=== PATIENT | female | born 1955 | race Caucasian/White ===

== ENCOUNTER 2020-10-14 15:37 | Outpatient (REF) | payer MEDICAID, SELFPAY ==
[2020-10-14 21:44] LABS: Abs Immature Grans 0.01 10^3/uL (0.0-0.06); Absolute Basophil Count 0.07 10^3/uL (0.0-0.2); Absolute Eosinophil Count 0.04 10^3/uL (0.0-0.7); Absolute Lymphocyte Count 1.31 10^3/uL (1.2-3.4); Absolute Monocyte Count 0.69 10^3/uL (0.1-0.8); Absolute Neutrophil Count 4.62 10^3/uL (1.2-6.7); Eosinophils % 0.6; HCT 44.5 % (36.0-46.0); HGB 15.1 g/dL (11.2-15.7); Immature Grans % 0.1; Lymphocytes % 19.4; MCH 29.9 pg (27.0-33.0); MCHC 33.9 % (32.0-36.0); MCV 88.1 fL (80-95); MPV 10.3 fL (8.0-11.0); Monocytes % 10.2; Neutrophils % 68.7; Nucleated RBC 0 %; Platelet Count 237 10^3/uL (130-400); RBC 5.05 10^6/uL (3.93-5.22); RDW 12.4 % (11.7-14.6); RDW-SD 40.3 fL; WBC 6.74 10^3/uL (4.4-10.8)
[2020-10-14 21:47] LABS: Bilirubin Negative (Negative); Blood Trace-intact (Negative); Clarity Clear (Clear); Glucose Negative (Negative); Ketones Trace mg/dL (Negative); Leukocyte Esterase Negative (Negative); Nitrite Negative (Negative); Urobilinogen 0.2 EU/dL (Up TO 0.2)
[2020-10-14 22:04] LABS: ALT 26 U/L (14-59); AST 20 U/L (15-37); Albumin 4.3 g/dL (3.4-5.0); Alkaline Phosphatase 96 U/L (46-116); Anion Gap 8.6 mmol/L (3-11); BUN 16 mg/dL (7-18); Bilirubin, Total 0.9 mg/dL (0.2-1.0); C-Reactive Protein 0.05 mg/dL (0.0-0.3); CO2 30.4 mmol/L (21.0-32.0); COMMENT (LAB VIEW ONLY) 139.49 mg/dL; CREATININE 0.8 mg/dL (0.55-1.02); Calcium 10.6 mg/dL (8.5-10.1); Chloride 105 mmol/L (98-107); Glucose 90 mg/dL (74-106); Potassium 4.4 mmol/L (3.5-5.1); Sodium 144 mmol/L (136-145); Total Protein 7.6 g/dL (6.4-8.2)
[2020-10-14 22:14] LABS: Bacteria Rare HPF (Negative); C & S Indicated? No; Casts Negative LPF (Negative); Crystals Negative HPF (Negative); Epithelial Cells Few HPF (Negative); Mucus Negative (Negative); WBC Negative HPF (0-5)
[2020-10-16 14:59] LABS: ANA Interpretation Negative (Negative)
[2020-10-17 14:19] LABS: c-ANCA Negative (Negative); p-ANCA Negative (Negative)
== END 2020-10-14 15:38 | disposition home or self-care (01) ==
LOC: NCHCN 15:37
DX: I16.0 Hypertensive urgency (principal); G47.9 Sleep disorder, unspecified; M79.2 Neuralgia and neuritis, unspecified; Z86.79 Personal history of other diseases of the circulatory system; R31.21 Asymptomatic microscopic hematuria; I10 Essential (primary) hypertension
CPT/HCPCS: 80053; 81003; 81015; 82043; 82570; 84443; 85025; 86038; 86140; 86255

== ENCOUNTER 2020-10-21 20:58 | Outpatient (REF) | payer MEDICAID, SELFPAY ==
[2020-10-21 18:38] LABS: Calcium 9.7 mg/dL (8.5-10.1)
[2020-10-23 08:58] LABS: Parathyroid Hormone,Intact 37 pg/mL (19-88)
== END 2020-10-21 20:59 | disposition home or self-care (01) ==
LOC: NCHCN 20:58
DX: E83.52 Hypercalcemia (principal); I10 Essential (primary) hypertension
CPT/HCPCS: 82310; 83970

== ENCOUNTER 2021-09-05 08:43 | Emergency (ER) | payer MEDICAID, SELFPAY ==
--- NOTE | 2021-09-05 | DI.CT_ITS ---
Exam(s) 3D RECON ON CT WORKSTATION EXAM: 3D RECON ON CT WORKSTATION CLINICAL HISTORY: 3D RECONS REQUESTED ON FX HUMERUS. TECHNIQUE: Imaging Protocol: 3D reconstructions were performed. CONTRAST MATERIAL: Non contrast COMPARISON: CR,XR XR SHOULDER LT COMPLETE 2+V from 09/05/[address] UPPER EXTREMITY LT WO from 09/05/2021 FINDINGS: The comminuted fracture of the humeral head is again noted with involvement of the greater tuberosity . There is separation of fracture fragments. There is widening of the joint space related to effusi on seen on 2D images.. IMPRESSION: Comminuted humeral head fracture. RADIATION DOSE DELIVERED: Total DLP DATA REPOSITORY: All CT scans at this facility are submitted to the National Radiology Data Registry (NRDR) Dose Index Registry (DIR) with the [employer] (A[employer]). RADIATION OPTIMIZATION: All CT scans at this facility use at least one of these dose optimization te chniques: automated exposure control; mA and/or kV adjustment per patient size (includes targeted exa ms where dose is matched to clinical indication); or iterative reconstruction.
--- NOTE | 2021-09-05 08:51 | ED.GENADUL_ITS ---
Discharge Plan Disposition Patient Disposition: HOME Condition: Stable Discharge Details Clinical Impression: Fracture of proximal humerus Primary Care Provider: Cathy Diaz ED Provider: Kathleen Art Home Meds and New Rx's Prescriptions: Continued sertraline [Zoloft] 25 mg tablet 25 mg PO DAILY 0RF coenzyme Q10 [Co Q-10] 100 mg capsule 100 mg PO DAILY 0RF taurine 1,000 mg capsule 1,000 mg PO DAILY 0RF cyanocobalamin (vitamin B-12) [Vitamin B-12] 1,000 mcg Tablet 1,000 mcg PO DAILY 0RF magnesium 100 mg Capsule 100 mg PO DAILY 0RF magnesium 100 mg Capsule 200 mg PO HS 0RF omega-3 fatty acids-vitamin E 1,000 mg Capsule 1 cap PO DAILY 0RF Discharge Instructions Additional Instructions: Rest, ice, and elevate the affected area as much as possible. Alternate tylenol and motrin as needed and directed for pain. Take the oxycodone for pain not relieved with Tylenol or Motrin. Keep the sling in place at all times until follow-up with orthopedics. You may remove it briefly to shower but be sure to keep your arm at your side You will get a call from the orthopedist office on Monday to schedule a follow- up appointment for reevaluation. Return immediately to the emergency department if you develop any worsening or new concerning symptoms. Referrals: Martin Aggarwal MD [ [facility]] - Discharge Data Discharge Date/Time-TO BE ENTERED AT DEPARTURE: 09/05/21 11:15 Discharge Physician: Kathleen Art Medical Decision Making 66-year-old female with a history of anxiety presents with left shoulder pain after a trip and fall landing on her left shoulder at home 1 hour ago. Denies any other injuries. She has tenderness and edema to the left proximal upper arm, holding her arm close to her body. Suspect proximal humerus fracture. No obvious deformity. Neurovascularly intact. Will place in a sling, give a dose of ibuprofen and refer for x-ray. X-ray notes: FINDINGS: Bones/joints: There is a comminuted fracture of the proximal left humerus involving the surgical neck and greater tuberosity with multiple mild to moderately displaced fracture fragments. This fracture has a dominant oblique component in the surgical neck. There is pseudosubluxation of the humeral head with respect to the glenoid, likely due to an underlying glenohumeral joint effusion, though no dislocation. Acromioclavicular alignment is anatomic. Soft tissues: Periarticular soft tissues are unremarkable. X-ray reviewed with Dr. Aggarwal who requested a CT with KOR protocol and 3D reconstruction and will need surgical repair. Recommends a sling and orthopedics will follow up with her tomorrow. Will give oxycodone to go as needed for breakthrough pain. Advised on the importance of rest, ice, elevation, alternating Tylenol and Motrin. Patient placed on orthopedic follow-up list. Usual and customary return precautions given prior to discharge. Medical Records Medical records reviewed: Yes I reviewed the patient's medical records. Imaging Data Radiologic Study: Radiologist's impression: XR Left Shoulder Exam date and time: 09/05/2021 9:23 AM Age: 66 years old Clinical indication: Injury or trauma; Fall; Fracture, traumatic injury; Closed fracture; Humerus; Left; Injury details: Shoulder TECHNIQUE: Imaging protocol: XR Left shoulder. Views: 2 or more views. COMPARISON: No relevant prior studies available. FINDINGS: Bones/joints: There is a comminuted fracture of the proximal left humerus involving the surgical neck and greater tuberosity with multiple mild to moderately displaced fracture fragments. This fracture has a dominant oblique component in the surgical neck. There is pseudosubluxation of the humeral head with respect to the glenoid, likely due to an underlying glenohumeral joint effusion, though no dislocation. Acromioclavicular alignment is anatomic. Soft tissues: Periarticular soft tissues are unremarkable. IMPRESSION: Comminuted proximal left humeral fracture as described above. CT Left Upper Extremity Without Contrast, Shoulder Exam date and time: 09/05/2021 10:07 AM Age: 66 years old Clinical indication: Injury or trauma; Fall; Fracture, traumatic injury; Closed fracture; Humerus; Left TECHNIQUE: Imaging protocol: CT of the Left upper extremity without contrast was performed. Exam focused on the shoulder. COMPARISON: CR XR SHOULDER LT COMPLETE 2+V 09/05/2021 9:43 AM FINDINGS: Bones/joints: There is a severely comminuted fracture of the proximal left humerus. This fracture has a dominant oblique component extending from the lateral aspect of the surgical neck medially through the proximal diaphysis or the humeral shaft is displaced laterally by approximately 5 mm. Multiple branching fracture lines propagate superiorly into the greater tuberosity where there are numerous mild to moderately displaced fracture fragments. The dominant superior fracture fragment is displaced superiorly with respect to the humeral head by approximately 7 mm. No fracture is identified in the glenoid or elsewhere in the visualized osseous structures. Acromioclavicular and glenohumeral alignment are anatomic. Soft tissues: There is a large glenohumeral lipohemarthrosis. There is extensive infiltration of the intermuscular fat planes about the left shoulder and in the proximal left upper extremity, suspected intermuscular hemorrhage. Further characterization of periarticular soft tissue structures is limited by noncontrast CT technique. IMPRESSION: 1. Severely comminuted fracture of the proximal left humerus as described above. 2. Large glenohumeral lipohemarthrosis in the left shoulder. HPI General Mode of arrival: ambulatory . Date/Time Provider Initiated Documentation: 09/05/21 08:51 . Limitations to Documentation: no limitations . Information obtained by: patient . HPI Narrative: Patient is a 66-year-old female presents with left shoulder pain after fall at home 1 hour ago. Patient states she was walking at home when she did not see an open drawer and her pajama pants caught on the edge of the door causing her to fall landing on her left shoulder onto the ground. She denies any other injuries including head injury, LOC, headache or vomiting. She denies any chest pain abdominal pain, neck or back pain or any other extremity injury or pain. She has not taken any medication for pain. Related Data Home Medications Medication Instructions Recorded Confirmed coenzyme Q10 100 mg capsule (Co 100 mg PO DAILY 03/06/21 09/05/21 Q-10) sertraline 25 mg tablet (Zoloft) 25 mg PO DAILY 03/06/21 09/05/21 taurine 1,000 mg capsule 1,000 mg PO DAILY 03/06/21 09/05/21 cyanocobalamin (vitamin B-12) 1,000 mcg PO DAILY 09/05/21 09/05/21 1,000 mcg tablet (Vitamin B-12) magnesium 100 mg capsule 100 mg PO DAILY 09/05/21 09/05/21 magnesium 100 mg capsule 200 mg PO HS 09/05/21 09/05/21 omega-3 fatty acids-vitamin E 1 cap PO DAILY 09/05/21 09/05/21 1,000 mg capsule Allergies Allergy/AdvReac Type Severity Reaction Status Date / Time No Known Allergies Allergy Verified 09/05/21 09:00 General Stated Complaint: Orthopedic SUSANA: 4 Review of Systems All systems reviewed & are unremarkable except as noted in HPI and below Constitutional Constitutional: Reports as per HPI, Denies chills and Denies fever(s) Eyes Eyes: Denies blurry vision ENT Ears, Nose, Mouth, and Throat: Denies dizziness, Denies sore throat and Denies throat swelling Cardiovascular Cardiovascular: Denies chest pain and Denies dyspnea Respiratory Respiratory: Denies cough and Denies dyspnea Gastrointestinal Gastrointestinal: Denies abdominal pain, Denies diarrhea and Denies vomiting Genitourinary Genitourinary: Denies hematuria and Denies dysuria Musculoskeletal Musculoskeletal: Reports other (L shoulder pain) Integumentary/Breasts Skin/Breast: Denies lesions and Denies rash Neurologic Neurologic: Denies dizziness and Denies localized weakness Allergic/Immunologic Allergic/Immunologic: Denies throat swelling PFSH All Active Problems (Updated 09/05/21 @ 09:57 by Kathleen Art DO) Fracture of proximal humerus (Acute) Hypertension (Chronic) Chronic insomnia (Acute) Hx of mitral valve prolapse (Acute) Asymptomatic microscopic hematuria (Acute) Hypercalcemia (Acute) Numbness and tingling of both legs below knees (Acute) Low back pain (Acute) Acute serous otitis media of left ear (Acute) Medical History (Updated 09/05/21 @ 09:57 by Kathleen Art DO) Anxiety Surgical History (Updated 09/05/21 @ 09:49 by Kathleen Art DO) No significant past surgical history Social History Smoking/Tobacco Use Status: Never Smoking risk assessment performed?: Yes Alcohol Intake: never Drug use: Never Do you feel safe at home: Yes Do you feel safe in your relationship?: Yes Exam Const General: cooperative, healthy appearing and no acute distress Orientation: alert, awake and oriented x3 HENMT Head: normal to inspection Mouth: oral mucosae normal Eyes General: appearance normal, both eyes and all related structures Neck Neck: normal visual inspection Resp Effort & Inspection: normal respiratory effort and able to speak in complete sentences Cardio Rate: regular rate Skin General skin exam: no rashes or lesions noted Neuro General: patient alert, patient awake and patient oriented x3 Motor: muscle tone normal throughout Extrem Shoulder/upper arm images: 1. Moderate edema and tenderness to palpation to left anterior and lateral proximal upper arm. No deformity. Other: No tenderness to palpation to left clavicle, elbow, forearm, wrist or hand. Left radial and ulnar pulses intact. Normal capillary refill. Psych Appearance: grossly normal Affect: normal affect Procedures Orthopedic Splinting/Casting Injury #1: Side: left Upper Extremity Injury Location: shoulder Upper Extremity Immobilizer: sling/shoulder immobilizer
[2021-09-05 08:55] VITALS: BP 152/71; PULSE 65; RESP 18; TEMP 36.3; O2SAT 100
--- NOTE | 2021-09-05 09:15 | DI.RAD_ITS ---
Exam(s) XR SHOULDER LT COMPLETE 2+V CT UPPER EXTREMITY LT WO EXAM: CT UPPER EXTREMITY LT WO CLINICAL HISTORY: fall onto L shoulder, comminuted prox hum fx TECHNIQUE: COMPARISON: CR,XR XR SHOULDER LT COMPLETE 2+V from 09/05/2021 FINDINGS: For radiographic views of the left shoulder were obtained followed by CT examination. There is a sev erely comminuted moderately displaced fracture of the humeral head and neck. There is no evidence of a glenohumeral dislocation. No additional fracture identified. CT shows a large lipohemarthrosis o f the glenohumeral joint. IMPRESSION: RADIATION DOSE DELIVERED: 550.48mGy.cm Total DLP !Error CTDIvol RADIATION OPTIMIZATION: All CT scans at this facility use at least one of these dose optimization te chniques: automated exposure control; mA and/or kV adjustment per patient size (includes targeted exa ms where dose is matched to clinical indication); or iterative reconstruction.
[2021-09-05] MEDS: Ibuprofen 600 MG TAB PO (09:28)
--- NOTE | 2021-09-05 09:48 | DI.VRAD_ITS ---
PROCEDURE INFORMATION: Exam: XR Left Shoulder Exam date and time: 09/05/2021 9:23 AM Age: 66 years old Clinical indication: Injury or trauma; Fall; Fracture, traumatic injury; Closed fracture; Humerus; Left; Injury details: Shoulder TECHNIQUE: Imaging protocol: XR Left shoulder. Views: 2 or more views. COMPARISON: No relevant prior studies available. FINDINGS: Bones/joints: There is a comminuted fracture of the proximal left humerus involving the surgical neck and greater tuberosity with multiple mild to moderately displaced fracture fragments. This fracture has a dominant oblique component in the surgical neck. There is pseudosubluxation of the humeral head with respect to the glenoid, likely due to an underlying glenohumeral joint effusion, though no dislocation. Acromioclavicular alignment is anatomic. Soft tissues: Periarticular soft tissues are unremarkable. IMPRESSION: Comminuted proximal left humeral fracture as described above. Dictated and Authenticated by: Sommer Franco MD. Ordering:KAY Wang MD
--- NOTE | 2021-09-05 10:38 | DI.VRAD_ITS ---
PROCEDURE INFORMATION: Exam: CT Left Upper Extremity Without Contrast, Shoulder Exam date and time: 09/05/2021 10:07 AM Age: 66 years old Clinical indication: Injury or trauma; Fall; Fracture, traumatic injury; Closed fracture; Humerus; Left TECHNIQUE: Imaging protocol: CT of the Left upper extremity without contrast was performed. Exam focused on the shoulder. COMPARISON: CR XR SHOULDER LT COMPLETE 2+V 09/05/2021 9:43 AM FINDINGS: Bones/joints: There is a severely comminuted fracture of the proximal left humerus. This fracture has a dominant oblique component extending from the lateral aspect of the surgical neck medially through the proximal diaphysis or the humeral shaft is displaced laterally by approximately 5 mm. Multiple branching fracture lines propagate superiorly into the greater tuberosity where there are numerous mild to moderately displaced fracture fragments. The dominant superior fracture fragment is displaced superiorly with respect to the humeral head by approximately 7 mm. No fracture is identified in the glenoid or elsewhere in the visualized osseous structures. Acromioclavicular and glenohumeral alignment are anatomic. Soft tissues: There is a large glenohumeral lipohemarthrosis. There is extensive infiltration of the intermuscular fat planes about the left shoulder and in the proximal left upper extremity, suspected intermuscular hemorrhage. Further characterization of periarticular soft tissue structures is limited by noncontrast CT technique. IMPRESSION: 1. Severely comminuted fracture of the proximal left humerus as described above. 2. Large glenohumeral lipohemarthrosis in the left shoulder. Dictated and Authenticated by: Sommer Franco MD. Ordering:KAY Wang MD
== END 2021-09-05 11:15 | disposition home or self-care (01) ==
PROVIDERS: Emergency Provider Physician Assistant
DX: S42.292A Other displaced fracture of upper end of left humerus, initial encounter for closed fracture (principal); W01.0XXA Fall on same level from slipping, tripping and stumbling without subsequent striking against object, initial encounter
CPT/HCPCS: 76376; 99284; 73030; 73200; 99283

== ENCOUNTER 2021-09-08 11:46 | Outpatient (CLI) | payer MEDICAID, SELFPAY ==
--- NOTE | 2021-09-08 09:45 | DI.RAD_ITS ---
Exam(s) XR SHOULDER LT COMPLETE 2+V EXAM: XR SHOULDER LT COMPLETE 2+V CLINICAL HISTORY: left proximal humerus fracture TECHNIQUE: COMPARISON: CR,XR XR SHOULDER LT COMPLETE 2+V from 09/05/2021 FINDINGS: Two views were obtained and show previously described fracture of the proximal humerus. No gross int erval change in alignment of fracture fragments comparison with examination of September 05. Note is ag ain made of inferior subluxation of the humeral head relative to the glenoid. IMPRESSION: RADIATION DOSE DELIVERED: Total DLP
== END 2021-09-08 11:47 | disposition home or self-care (01) ==
LOC: DIORS 11:46
PROVIDERS: PCP Family Medicine; Visit Provider Student in an Organized Health Care Education/Training Program
DX: S42.292D Other displaced fracture of upper end of left humerus, subsequent encounter for fracture with routine healing; X58.XXXD Exposure to other specified factors, subsequent encounter
CPT/HCPCS: 73030

== ENCOUNTER 2021-09-22 10:14 | Outpatient (CLI) | payer MEDICAID, SELFPAY ==
--- NOTE | 2021-09-22 10:00 | DI.RAD_ITS ---
Exam(s) XR SHOULDER LT COMPLETE 2+V EXAM: XR SHOULDER LT COMPLETE 2+V CLINICAL HISTORY: follow up. TECHNIQUE: 2D digital imaging was performed. COMPARISON: CR XR SHOULDER LT COMPLETE 2+V from 09/08/2021 FINDINGS: Two views Previously described fracture of the humeral head/greater tuberosity and neck is again noted. Relati vely stable appearance of the fracture fragments. Again noted is inferior subluxation humeral head r elative to the glenoid fossa, unchanged. There is no evidence of fracture of the osseous glenoid. Ipsilateral clavicle unremarkable IMPRESSION: DATA REPOSITORY: RADIATION DOSE DELIVERED:
== END 2021-09-22 10:15 | disposition home or self-care (01) ==
LOC: DIORS 10:14
PROVIDERS: PCP Family Medicine; Referring Provider Family Medicine; Visit Provider Physician Assistant Surgical
DX: S42.292D Other displaced fracture of upper end of left humerus, subsequent encounter for fracture with routine healing (principal); W01.0XXD Fall on same level from slipping, tripping and stumbling without subsequent striking against object, subsequent encounter
CPT/HCPCS: 73030

== ENCOUNTER 2021-11-03 11:30 | Outpatient (CLI) | payer MEDICAID, SELFPAY ==
--- NOTE | 2021-11-03 11:00 | DI.RAD_ITS ---
Exam(s) XR SHOULDER LT COMPLETE 2+V EXAM: XR SHOULDER LT COMPLETE 2+V INDICATION: humerus fx f/u. COMPARISON: CT 3D RECON ON CT WORKSTATION from 09/05/2021 CR XR SHOULDER LT COMPLETE 2+V from 09/08/2021 TECHNIQUE: 2D digital imaging was performed. Two views. FINDINGS: No change in alignment of humeral head fracture given differences in projection. The amount of infer ior subluxation at the glenohumeral joint has decreased. DATA REPOSITORY: RADIATION DOSE DELIVERED:
== END 2021-11-03 11:31 | disposition home or self-care (01) ==
LOC: DIORS 11:30
PROVIDERS: PCP Family Medicine; Referring Provider Family Medicine; Visit Provider Student in an Organized Health Care Education/Training Program
DX: S42.292D Other displaced fracture of upper end of left humerus, subsequent encounter for fracture with routine healing (principal); W01.0XXD Fall on same level from slipping, tripping and stumbling without subsequent striking against object, subsequent encounter
CPT/HCPCS: 73030

== ENCOUNTER 2021-12-22 10:38 | Outpatient (CLI) | payer MEDICAID, SELFPAY ==
--- NOTE | 2021-12-22 10:30 | DI.RAD_ITS ---
Exam(s) XR SHOULDER LT COMPLETE 2+V EXAM: XR SHOULDER LT COMPLETE 2+V CLINICAL HISTORY: PROXIMAL HUMERUS FX F/U. TECHNIQUE: 2D digital imaging was performed of the left shoulder. Three images were obtained. AP a nd Y views were obtained. COMPARISON: CR XR SHOULDER LT COMPLETE 2+V from 09/22/2021 CR XR SHOULDER LT COMPLETE 2+V from 11/03/2021 FINDINGS: BONES: There has been no change in alignment of the fracture involving the proximal left humerus. No new fracture or dislocation is seen. There has been no change in alignment of the humeral head rela tive to the glenoid. No bony destructive lesion is seen. JOINTS: Stable slight inferior subluxation of the humeral head relative to the glenoid. SOFT TISSUE: Normal. IMPRESSION: Stable proximal left humeral fracture. DATA REPOSITORY: RADIATION DOSE DELIVERED:
== END 2021-12-22 10:39 | disposition home or self-care (01) ==
LOC: DIORS 10:39
PROVIDERS: PCP Family Medicine; Referring Provider Family Medicine; Visit Provider Student in an Organized Health Care Education/Training Program
DX: S42.202D Unspecified fracture of upper end of left humerus, subsequent encounter for fracture with routine healing (principal); X58.XXXD Exposure to other specified factors, subsequent encounter
CPT/HCPCS: 73030

== ENCOUNTER 2022-03-08 11:39 | Outpatient (CLI) | payer MEDICARE, OTHER, SELFPAY ==
--- NOTE | 2022-03-08 11:00 | DI.RAD_ITS ---
Exam(s) XR SHOULDER LT COMPLETE 2+V EXAM: XR SHOULDER LT COMPLETE 2+V CLINICAL HISTORY: F/U LEFT SHOULDER. TECHNIQUE: 2D digital imaging was performed of the left shoulder. Three images were obtained. AP, Y-view and axillary views were obtained. COMPARISON: CR XR SHOULDER LT COMPLETE 2+V from 12/22/2021 FINDINGS: BONES: There has been no change in alignment of the healing proximal left humeral fracture. No new f racture or dislocation is present. No bony destructive lesion is seen. JOINTS: No dislocation present. SOFT TISSUE: Normal. IMPRESSION: Stable healing proximal left humeral fracture. DATA REPOSITORY: RADIATION DOSE DELIVERED:
== END 2022-03-08 11:40 | disposition home or self-care (01) ==
LOC: DIORS 11:40
PROVIDERS: PCP Family Medicine; Referring Provider Family Medicine; Visit Provider Student in an Organized Health Care Education/Training Program
DX: S42.202D Unspecified fracture of upper end of left humerus, subsequent encounter for fracture with routine healing; X58.XXXD Exposure to other specified factors, subsequent encounter
CPT/HCPCS: 99213; 73030

== ENCOUNTER 2023-07-18 09:28 | Outpatient (REF) | payer MEDICARE, OTHER, SELFPAY ==
[2023-07-18 14:22] LABS: HCT 45.1 % (36.0-46.0); HGB 14.8 g/dL (11.2-15.7); MCH 29.4 pg (27.0-33.0); MCHC 32.8 % (32.0-36.0); MCV 90 fL (80-95); MPV 10.5 fL (8.0-11.0); Platelet Count 226 10^3/uL (130-400); RBC 5.04 10^6/uL (3.93-5.22); RDW 12.2 % (11.7-14.6); WBC 5.66 10^3/uL (4.4-10.8)
[2023-07-18 15:02] LABS: ALT 24 U/L (14-59); AST 19 U/L (15-37); Albumin 4.1 g/dL (3.4-5.0); Alkaline Phosphatase 99 U/L (46-116); Anion Gap 7.5 mmol/L (3-11); BUN 21 mg/dL (7-18); Bilirubin, Total 0.7 mg/dL (0.2-1.0); CO2 28.5 mmol/L (21.0-32.0); CREATININE 0.7 mg/dL (0.55-1.02); Calcium 9.9 mg/dL (8.5-10.1); Calculated LDL 101 mg/dL (<100); Chloride 106 mmol/L (98-107); Cholesterol 206 mg/dL (<200); Estimated GFR 95.32 (mL/min/1.73m2); Glucose 108 mg/dL (74-106); HDL Cholesterol 100 mg/dL (40-60); Magnesium 2.1 mg/dL (1.8-2.4); Potassium 5.1 mmol/L (3.5-5.1); Sodium 142 mmol/L (136-145); Total Protein 7.5 g/dL (6.4-8.2); Triglyceride 27 mg/dL (<150)
== END 2023-07-18 09:29 | disposition home or self-care (01) ==
LOC: NCHCN 09:28
PROVIDERS: PCP Family Medicine; Visit Provider Family Medicine
DX: R03.0 Elevated blood-pressure reading, without diagnosis of hypertension (principal); R79.89 Other specified abnormal findings of blood chemistry; Z86.79 Personal history of other diseases of the circulatory system
CPT/HCPCS: 80053; 80061; 85027; 83735

== ENCOUNTER 2024-11-23 15:44 | Outpatient (REF) | payer MEDICARE, SELFPAY ==
[2024-11-23 16:02] LABS: Anion Gap 5.3 mmol/L (3-11); BUN 20 mg/dL (7-18); CO2 30.7 mmol/L (21.0-32.0); CREATININE 0.9 mg/dL (0.55-1.02); Calcium 10.1 mg/dL (8.5-10.1); Chloride 105 mmol/L (98-107); Estimated GFR 70.07 (mL/min/1.73m2); Glucose 128 mg/dL (74-106); Potassium 4.3 mmol/L (3.5-5.1); Sodium 141 mmol/L (136-145)
[2024-11-23 16:04] LABS: Epithelial Cells Negative HPF (Negative); Other Cells Negative (Negative)
[2024-11-23 16:05] LABS: Bacteria Packed HPF (Negative); C & S Indicated? C&S Done As Ordered; Crystals Negative HPF (Negative); Mucus Negative (Negative)
== END 2024-11-23 15:45 | disposition home or self-care (01) ==
LOC: LBN 15:44
PROVIDERS: PCP Family Medicine; Visit Provider Family Medicine
DX: R31.0 Gross hematuria (principal)
CPT/HCPCS: 80048; 81015; 87086

== ENCOUNTER 2024-11-27 00:29 | Outpatient (CLI) | payer MEDICARE, SELFPAY ==
--- NOTE | 2024-11-27 | DI.CT_ITS ---
Exam(s) CT ABDOMEN PELVIS WO/W EXAM: CT ABDOMEN PELVIS WO/W CLINICAL HISTORY: GROSS HEMATURIA,R31.0. TECHNIQUE: Imaging Protocol: Axial computed tomography images with coronal and sagittal reformatted images were created and reviewed. Images were performed from the lung bases through the ischial tuberosities before IV contrast and fol lowing IV contrast using a 70 second delay, followed by 7 minutes delayed images. CONTRAST MATERIAL: Intravenous: Omnipaque 350 Contrast volume:100 cc Oral: no COMPARISON: No exams were available for comparison FINDINGS: Lung Bases: Prominent pectus excavatum deformity. Liver: Normal density. No measurable mass. Gallbladder and biliary tract: No biliary dilation. Pancreas: Normal density, no abnormal calcifications or inflammatory process. Spleen: Normal. Kidneys: Normal size, contour and axis. Multiple bilateral renal calculi. Enhancement pattern of the medullary suggests medullary sponge kidney. Small parapelvic cyst lower pole of the right kidney. No suspicious masses seen. Adrenal glands: No masses seen. Lymph nodes: Within normal limits. Abdominal Aorta: Abdominal portion non-dilated. Soft tissues: Unremarkable. Bladder: Nearly empty no gross wall thickening. No evidence of a mass.No evidence of calculi. Bowel: Stomach unremarkable. No obstruction or bowel wall thickening. Appendix normal. Peritoneal cavity: No ascites, collection or mesenteric inflammatory response. Bones: Unremarkable for age.. Reproductive organs: 7 centimeter simple appearing cyst of the right ovary. IMPRESSION: No suspicious renal mass. Multiple bilateral renal calculi. Enhancement of the medullary regions bustos s the appearance of medullary sponge kidney. 7 centimeter left ovarian cyst. Pelvic ultrasound is recommended for further evaluation. Unexpected findings RADIATION DOSE DELIVERED: 837.34mGy.cm Total DLP DATA REPOSITORY: All CT scans at this facility are submitted to the National Radiology Data Registry (NRDR) Dose Index Registry (DIR) with the [employer] ([employer]). RADIATION OPTIMIZATION: All CT scans at this facility use at least one of these dose optimization te chniques: automated exposure control; mA and/or kV adjustment per patient size (includes targeted exa ms where dose is matched to clinical indication); or iterative reconstruction.
[2024-11-27] MEDS: Omnipaque 350 MG/ML 100 ML BTL 75 ML IJ (15:02)
[2024-11-27] MEDS: Normal Saline - Diluent 50 ML VIAL IJ (15:02)
== END 2024-11-27 00:49 ==
PROVIDERS: PCP Family Medicine; Visit Provider Nurse Practitioner Family
DX: R31.0 Gross hematuria (principal); N20.0 Calculus of kidney
CPT/HCPCS: 74178; J3490

== ENCOUNTER → 2024-12-02 12:54 | Outpatient (BNVA) | payer MEDICARE, OTHER, SELFPAY | PROVIDERS: PCP Family Medicine; Referring Provider Family Medicine; Visit Provider Nurse Practitioner Gerontology | DX: N20.0 Calculus of kidney (principal); R31.0 Gross hematuria | CPT/HCPCS: 99214; 81003 ==